=== PATIENT | male | born 1965 | race Caucasian/White ===

== ENCOUNTER 2017-02-27 20:28 | Emergency (ER) | payer OTHER ==
[2017-02-27 20:40] VITALS: BP 160/90; PULSE 72; TEMP 98.6; BMI 29.1
--- NOTE | 2017-02-27 20:49 | PDOC ---
History of Present Illness - General Chief Complaint: Sore Throat Stated Complaint: SORE THROAT Time Seen by Provider: 02/27/17 20:34 History Source: Patient - History of Present Illness Timing/Duration: reports: other Associated Symptoms: reports: sore throat. denies: cough, earache, fever/chills , nasal congestion, nasal drainage Past History - Past Medical History Allergies/Adverse Reactions: Allergies Allergy/AdvReac Type Severity Reaction Status Date / Time No Known Allergies Allergy Verified 02/27/17 20:37 Home Medications: Ambulatory Orders No Home Medications 0 dose .ROUTE UTDICT 09/27/13 - Psycho/Social/Smoking Cessation Hx Suicidal Ideation: No Smoking History: Never smoked Review of Systems - Review of Systems Constitutional: No: Chills, Fever HEENTM: Yes: Throat Pain. No: Ear Pain, Nose Congestion Respiratory: No: Cough *Physical Exam - Vital Signs Last Vital Signs Temp Pulse Resp BP Pulse Ox 98.6 F 72 18 160/90 98 02/27/17 20:37 02/27/17 20:37 02/27/17 20:37 02/27/17 20:37 02/27/17 20:37 - Physical Exam General Appearance: Yes: Appropriately Dressed. No: Apparent Distress HEENT: positive: Normal ENT Inspection, Normal Voice, TMs Normal, Pharynx Normal. negative: Scleral Icterus (R), Scleral Icterus (L) Neck: positive: Supple. negative: Lymphadenopathy (R), Lymphadenopathy (L) Respiratory/Chest: negative: Respiratory Distress Integumentary: positive: Dry, Warm Neurologic: positive: Fully Oriented, Alert, Normal Mood/Affect Medical Decision Making - Medical Decision Making 02/27/17 20:49 Patient is a 51-year-old male, denies any past medical history, here with sore throat with dysphagia 2 weeks. States he was seen at [facility] last week and given pain meds and several days of abx but that symptoms persists. No ear pain , cough, rhinorrhea, fever or chills. Non-smoker. No sick contacts. Patient well-appearing and stable with no tonsillar enlargement, exudates or erythema. Most likely viral. Rapid strep sent from triage and pending, though given recent abx use, will m/l be neg. Will give dose of Motrin in ED 06/26/17 21:15 Rapid strep neg. Dc w/ otc pain control and pmd f/u *DC/Admit/Observation/Transfer Diagnosis at time of Disposition: Pharyngitis Qualifiers: Pharyngitis/tonsillitis etiology: unspecified etiology Qualified Code(s): J02.9 - Acute pharyngitis, unspecified - Discharge Dispostion Disposition: HOME Condition at time of disposition: Good - Patient Instructions Printed Discharge Instructions: Sore Throat Additional Instructions: Nash prueba de estreptococo fue negativa hoy. [facility] motrin 800mg cada 6 horas seg n sea necesario y siga con nash PMD
[2017-02-27] MEDS ORDERED: IBUPROFEN 400 MG TABLET (FP) PO ONE ×2 (21:07→21:10)
== END 2017-02-27 21:23 | disposition home or self-care (01) ==
LOC: JERFT 20:28
DX: J02.9 Acute pharyngitis, unspecified (principal)
CPT/HCPCS: 87070; 87430; 99281-25

== ENCOUNTER 2017-05-17 15:43 | Emergency (ER) | payer OTHER ==
[2017-05-17 16:28] VITALS: BP 193/109; PULSE 99; TEMP 103; BMI 29.2
[2017-05-17] MEDS ORDERED: ACETAMINOPHEN 325 MG TABLET (FP) PO ONE (16:30)
--- NOTE | 2017-05-17 17:25 | PDOC ---
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 denies: cough, loss of appetite, nausea/vomiting, rash Past History - Past Medical History Allergies/Adverse Reactions: Allergies Allergy/AdvReac Type Severity Reaction Status Date / Time No Known Allergies Allergy Verified 05/17/17 16:28 Home Medications: Ambulatory Orders No Home Medications 0 dose .ROUTE UTDICT 09/27/13 Other medical history: NONE - Psycho/Social/Smoking Cessation Hx Anxiety: No Suicidal Ideation: No Smoking History: Never smoked Hx Alcohol Use: No Substance Use Type: None Review of Systems - Review of Systems Constitutional: Yes: Chills, Fever, Loss of Appetite, Malaise. No: Symptoms Reported HEENTM: Yes: Throat Pain, Throat Swelling. No: Nose Congestion Respiratory: No: Symptoms reported, Cough Cardiac (ROS): No: Symptoms Reported, Chest Pain ABD/GI: No: Symptoms Reported Musculoskeletal: No: Symptoms Reported Integumentary: Yes: Symptoms Reported Neurological: No: Symptoms reported *Physical Exam - Vital Signs Last Vital Signs Temp Pulse Resp BP Pulse Ox 103.0 F H 99 H 20 193/109 97 05/17/17 16:25 05/17/17 16:25 05/17/17 16:25 05/17/17 16:25 05/17/17 16:25 - Physical Exam General Appearance: Yes: Appropriately Dressed. No: Apparent Distress HEENT: positive: Pharyngeal Erythema, Tonsillar Exudate, Tonsillar Erythema Neck: positive: Supple, Lymphadenopathy (R), Lymphadenopathy (L). negative: Tender, Rigidity Respiratory/Chest: positive: Lungs Clear. negative: Chest Tender, Normal Breath Sounds, Stridor, Wheezing ED Treatment Course - Medications Given in the ED: ED Medications Discontinued Medications Generic Name Dose Route Start Last Admin Trade Name Freq PRN Reason Stop Dose Admin Acetaminophen 650 mg 05/17/17 16:30 05/17/17 16:30 Tylenol - PO 05/17/17 16:31 650 mg NOW ONE Administration Medical Decision Making - Medical Decision Making 05/17/17 17:23 will treat with penicillin which was started at home with old RX *DC/Admit/Observation/Transfer Diagnosis at time of Disposition: Acute pharyngitis Qualifiers: Pharyngitis/tonsillitis etiology: other specified organisms Qualified Code(s): J02.8 - Acute pharyngitis due to other specified organisms - Discharge Dispostion Disposition: HOME Condition at time of disposition: Stable Admit: No - Patient Instructions Additional Instructions: will treat with pcn vk and motrin - Post Discharge Activity Work/School Note: Back to Work
== END 2017-05-17 17:28 | disposition home or self-care (01) ==
LOC: JERFT 15:43
DX: J02.8 Acute pharyngitis due to other specified organisms (principal)
CPT/HCPCS: 99281-25

== ENCOUNTER 2017-07-26 09:59 | Emergency (ER) | payer SELFPAY ==
[2017-07-26 10:33] VITALS: BP 174/99; PULSE 72; TEMP 97.2; BMI 29.1
[2017-07-26] MEDS ORDERED: ERYTHROMYCIN 0.5% OPHTHALMIC OINTMENT 3.5 GM TUBE ONE (10:48)
--- NOTE | 2017-07-26 10:51 | PDOC ---
History of Present Illness - General Chief Complaint: Eye Problem Stated Complaint: LT EYE INJURY Time Seen by Provider: 07/26/17 10:26 History Source: Patient Exam Limitations: No Limitations - History of Present Illness Initial Comments: 07/26/17 13:28 My Chief Complaint: lef eye discomfort, tearing and pain today History of present illness: Patient is a 52-year-old male with no significant medical history here today complaining of left eye irritation with tearing and photophobia and discomfort today. Patient reports that that he went to bed with no discomfort of his left eye and woke with discomfort of his left eye patient has been rubbing it. Patient denies any discharge or any change in vision. Patient does not wear glasses or contacts. Patient unable to keep his left eye open in order to do snellen test. Timing/Duration: other (today ) Severity: mild Associated Symptoms: reports: other (left eye discomfort tearing photophobia today ) Past History - Past Medical History Allergies/Adverse Reactions: Allergies Allergy/AdvReac Type Severity Reaction Status Date / Time No Known Allergies Allergy Verified 07/26/17 10:05 Home Medications: Ambulatory Orders Erythromycin 0.5% Eye Ointment [Erythromycin 0.5% Eye Ointment -] 1 applic OS QID 5 Days #1 tube 07/26/17 COPD: No Other medical history: NONE - Suicide/Smoking/Psychosocial Hx Smoking History: Never smoked Hx Alcohol Use: Yes (SOCIAL) Drug/Substance Use Hx: No Substance Use Type: None Review of Systems - Review of Systems Able to Perform ROS?: Yes Constitutional: No: Symptoms Reported HEENTM: Yes: Eye Pain (discomfort left eye this morning ), Tearing (left eye ), Other (photophobia under to due vision test cannot keep left eye open ). No: Blurred Vision, Recent change in vision, Double Vision Respiratory: No: Symptoms reported Cardiac (ROS): No: Symptoms Reported ABD/GI: No: Symptoms Reported : No: Symptoms Reported Musculoskeletal: No: Symptoms Reported Integumentary: No: Symptoms Reported Neurological: No: Symptoms reported *Physical Exam - Vital Signs Last Vital Signs Temp Pulse Resp BP Pulse Ox 97.2 F L 72 20 174/99 98 07/26/17 10:01 07/26/17 10:01 07/26/17 10:01 07/26/17 10:01 07/26/17 10:01 - Physical Exam General Appearance: Yes: Appropriately Dressed HEENT: positive: EOMI, KANIKA, Photophobia, Other (corneal abrasion left eye at 6 0'Clock ). negative: Pale Conjunctivae Neck: negative: Lymphadenopathy (R), Lymphadenopathy (L) Respiratory/Chest: positive: Lungs Clear, Normal Breath Sounds Cardiovascular: positive: Regular Rhythm, Regular Rate, S1, S2 Procedures - Consent Consent obtained: From Patient - Additional Procedures Progress: 07/26/17 13:33 left eye tetracaine 0.5 % 1 drop applied fluorescene stain corneal abrasion noted at 6 o'clock 07/26/17 13:33 Medical Decision Making - Medical Decision Making 07/26/17 13:30 Patient is a 52-year-old male with no significant medical history here today complaining of left eye irritation with tearing and photophobia and discomfort today. Patient reports that that he went to bed with no discomfort of his left eye and woke with discomfort of his left eye patient has been rubbing it. Patient denies any discharge or any change in vision. Patient does not wear glasses or contacts. Patient unable to keep his left eye open in order to do snellen test. \ corneal abrasion left eye PLAN: erythromcyin 0.5% oint 1/2 inch applied left eye to continue qid for 5 days follow up with opthomologist as soon as possible *DC/Admit/Observation/Transfer Diagnosis at time of Disposition: Corneal abrasion, left Qualifiers: Encounter type: initial encounter Qualified Code(s): S05.02XA - Injury of conjunctiva and corneal abrasion without foreign body, left eye, initial encounter - Discharge Dispostion Disposition: HOME Condition at time of disposition: Stable - Prescriptions Prescriptions: Erythromycin 0.5% Eye Ointment [Erythromycin 0.5% Eye Ointment -] 1 applic OS QID 5 Days #1 tube - Referrals Referrals: Cornel Matson MD [Staff Physician] - - Patient Instructions Additional Instructions: Follow-up with mascara molder as soon as possible for further evaluation Return to emergency room if symptoms worsen Avoid rubbing your left eye Patient voiced understanding of discharge instructions and all questions were answered Thank You for choosing [facility] emergency room for your medical needs today - Post Discharge Activity
[2017-07-26] MEDS ORDERED: ERYTHROMYCIN 0.5% OPHTHALMIC OINTMENT 3.5 GM TUBE OS ONE (10:53)
[2017-07-26] MEDS ORDERED: TETRACAINE 0.5% HCL 0.6ML DROPPER.BOTTLE OS ONE (10:54)
== END 2017-07-26 10:59 | disposition home or self-care (01) ==
LOC: JER 09:59 → JERFT 09:59
DX: S05.02XA Injury of conjunctiva and corneal abrasion without foreign body, left eye, initial encounter (principal); X58.XXXA Exposure to other specified factors, initial encounter; Y93.89 Activity, other specified; Y92.032 Bedroom in apartment as the place of occurrence of the external cause
CPT/HCPCS: 99281-25